=== PATIENT | male | born 1975 | race Caucasian/White ===

== ENCOUNTER 2022-07-04 15:10 | Emergency (ER) | payer OTHER ==
[2022-07-04] MEDS ORDERED: LORazepam 1 MG Tab PO ONE (15:59)
[2022-07-04 16:27] LABS: ESTIMATED GFR 105 mL/min (>60)
[2022-07-04 17:11] LABS: CORONAVIRUS COVID-19 NAA NEGATIVE (NEGATIVE)
[2022-07-04 20:55] VITALS: BP 144/96; PULSE 113
== END 2022-07-04 15:45 | disposition home or self-care (01) ==
LOC: FB.ED 15:10
DX: F41.9 Anxiety disorder, unspecified (principal); Z20.822 Contact with and (suspected) exposure to COVID-19; Z79.899 Other long term (current) drug therapy
CPT/HCPCS: 0241U; 36415; 80053; 84484; 85025; 85379; 93005; 99285; A9270